=== PATIENT | female | born 1950 | race Caucasian/White ===

== ENCOUNTER → 2017-02-15 | Outpatient (CLI) | payer OTHER ==
--- NOTE | 2017-02-15 12:32 | RAD ---
DATE: 02/15/2017. EXAM: DIGITAL SCREEN BILAT W/CAD. HISTORY: Routine mammographic screening. COMPARISON: 02/16/2016. This study was interpreted with the benefit of Computerized Aided Detection (CAD). FINDINGS: The breast parenchyma is heterogeneously dense, which could reduce sensitivity of mammography. Breast parenchyma level C.. There are no suspicious masses, microcalcifications or architectural distortion. Scattered coarse calcifications are benign. BI-RADS CATEGORY: 2 BENIGN FINDING(S). RECOMMENDED FOLLOW-UP: 12M 12 MONTH FOLLOW-UP. PQRS compliance statement: Patient information was entered into a reminder system with a target due date 02/15/2018 for the next mammogram. Mammography is a sensitive method for finding small breast cancers, but it does not detect them all and is not a substitute for careful clinical examination. A negative mammogram does not negate a clinically suspicious finding and should not result in delay in biopsying a clinically suspicious abnormality. "Our facility is accredited by the [employer] Mammography [employer]."
== END | disposition home or self-care (01) ==
LOC: MAMMO 09:54
PROVIDERS: ATTEND Family Medicine
DX: Z12.31 Encounter for screening mammogram for malignant neoplasm of breast (principal)
CPT/HCPCS: G0202; 77067

== ENCOUNTER → 2018-02-21 | Outpatient (CLI) | payer OTHER ==
--- NOTE | 2018-02-21 12:00 | RAD ---
DATE: 02/21/2018 EXAM: MAMMO ROSIO SCREENING BILATERAL HISTORY: Routine screening COMPARISON: 02/15/2017 This study was interpreted with the benefit of Computerized Aided Detection (CAD). Breast Density: HETERO The breast parenchyma is heterogenously dense, which could reduce sensitivity of mammography. Breast parenchyma level C. FINDINGS: 2-D and 3-D tomosynthesis imaging was performed in CC and MLO projections. Benign-appearing lymph node type densities are present in both axillary regions. No spiculated mass or architectural distortion is evident. There is a 6 mm smooth nodule in the medial aspect of the left breast at approximately the 9-10:00 location best seen on CC tomosynthesis images numbered 30. This was not evident on the previous study, however, that could be due to technical factors. No other new or enlarging breast densities are seen. Benign type calcifications are present. No suspicious microcalcifications have developed. IMPRESSION: Small medial left breast nodule as described above. Sonographic evaluation is suggested. BI-RADS CATEGORY: 0 INCOMPLETE: NEEDS ADDITIONAL IMAGING EVALUATION AND/OR PRIOR MAMMOGRAMS FOR COMPARISON. RECOMMENDED FOLLOW-UP: ADD ADDITIONAL IMAGING PQRS compliance statement: Patient information was entered into a reminder system with a target due date for the next mammogram. Mammography is a sensitive method for finding small breast cancers, but it does not detect them all and is not a substitute for careful clinical examination. A negative mammogram does not negate a clinically suspicious finding and should not result in delay in biopsying a clinically suspicious abnormality. "Our facility is accredited by the [employer] Mammography Program."
== END | disposition home or self-care (01) ==
LOC: MAMMO 07:55
PROVIDERS: ATTEND Family Medicine
DX: Z12.31 Encounter for screening mammogram for malignant neoplasm of breast (principal)
CPT/HCPCS: 77063; 77067

== ENCOUNTER → 2018-02-28 | Outpatient (CLI) | payer OTHER ==
--- NOTE | 2018-02-28 11:49 | RAD ---
Left breast ultrasound, 02/28/2018: History: Abnormal mammogram A targeted ultrasound exam the left breast was performed at the 9-10:00 location. At the 10:00 location approximate 7 cm in the nipple there is a small hypoechoic nodule. Its margins are smooth. It measures 6 x 4 x 6 mm. It is wider than tall. Low level internal echoes are present. There is no definite posterior acoustic enhancement or shadowing. This is probably a complicated cyst or fibroadenoma. A circumscribed malignancy is much less likely. It appears to correspond to the mammographic abnormality. Incidental note is made of multiple dilated ducts in the retroareolar region. IMPRESSION: Probably benign small left breast nodule as described above. Follow-up left breast ultrasound in 6 months and bilateral mammography at one year is suggested. BI-RADS 3-probably benign findings.
== END | disposition home or self-care (01) ==
LOC: US 10:49
PROVIDERS: ATTEND Family Medicine
DX: R92.8 Other abnormal and inconclusive findings on diagnostic imaging of breast (principal)
CPT/HCPCS: 76641

== ENCOUNTER → 2018-08-27 | Outpatient (CLI) | payer OTHER ==
--- NOTE | 2018-08-27 15:42 | RAD ---
EXAM: Left breast ultrasound. HISTORY: Six-month follow-up left breast nodule. COMPARISON: 02/21/2018, 02/28/2018. FINDINGS: Sonography of the left medial breast was performed at the site of prior concern at the 10:00 position 7 cm from the nipple. This again demonstrates a hypoechoic nodule measuring 6 x 4 mm. There is some internal perfusion on Doppler. One of its margins appears angulated and this remains indeterminate. The patient reports chronic nipple retraction. In the retroareolar region, no abnormality is identified. IMPRESSION: 1. BI-RADS Category 4: Suspicious abnormality-biopsy is suggested. 2. Recommend ultrasound-guided biopsy of a 6 mm nodule at the left 10:00 position 7 cm from the nipple.
== END | disposition home or self-care (01) ==
LOC: US 14:32
PROVIDERS: ATTEND Family Medicine
DX: N63.22 Unspecified lump in the left breast, upper inner quadrant (principal)
CPT/HCPCS: 76641

== ENCOUNTER → 2020-03-12 | Outpatient (CLI) | payer MEDICARE ==
--- NOTE | 2020-03-13 20:05 | RAD ---
Examination: MG BILAT SCREEN+ROSIO History: Reason: SCREENING MAMMOGRAM 3D / Spl. Instructions: / History: Comparison/Correlation: 02/21/2018, 02/15/2017, 02/16/2016 Technique: MLO and CC digital tomosynthesis (3D) images obtained. Radiologist reviewed these images on dedicated workstation. Findings: Breast Tissue Density C : The breasts are heterogeneously dense, which may obscure small masses. There are no dominant masses, suspicious microcalcifications, or architectural distortion. IMPRESSION: No mammographic evidence of malignancy. Recommend routine screening. BI-RADS category 1: Negative. The images were reviewed with computer-aided detection. Patient information is entered into reminder system with a target due date for the next screening sadie mogram. Mammography is the most sensitive method for finding small breast cancers, but it does not detect the m all and is not a substitute for careful clinical examination. A negative mammogram does not negate a clinically suspicious finding and should not result in delay in biopsying a clinically suspicious a bnormality. "Our facility is accredited by the [employer] Mammography Program." Electronically signed by: Sam Massey MD (03/13/2020 8:03 PM) [id number]
== END ==
LOC: MAMMO 08:29
PROVIDERS: ATTEND Family Medicine
DX: Z12.31 Encounter for screening mammogram for malignant neoplasm of breast (principal)
CPT/HCPCS: 77063; 77067